=== PATIENT | male | born 1950 | race Hispanic/Latino ===

== ENCOUNTER 2017-08-13 07:10 | Day surgery (SDC) | payer MEDICARE, OTHER ==
[2017-08-06 09:22] VITALS: BMI 25.7
[2017-08-13] MEDS ORDERED: Propofol 10 mg/ml Inj (20 ML) ONE (08:43)
--- NOTE | 2017-08-13 09:04 | CARD ---
APPROVED REPORT EKG Measurement Heart [id number] <Conclusion> Normal sinus rhythm Left axis deviation Right bundle branch block
[2017-08-13] MEDS ORDERED: Sodium Chloride 0.9% 1,000 ML IV SCH (09:30)
[2017-08-13 10:12] VITALS: BP 131/76; PULSE 62; RESP 18; TEMP 97.8; O2SAT 100
== END 2017-08-13 10:40 | disposition home or self-care (01) ==
LOC: ENDO 07:10
PROVIDERS: ATTEND Specialist
DX: D12.0 Benign neoplasm of cecum (principal); K57.30 Diverticulosis of large intestine without perforation or abscess without bleeding; K64.8 Other hemorrhoids; E11.9 Type 2 diabetes mellitus without complications; E78.5 Hyperlipidemia, unspecified; I10 Essential (primary) hypertension; Z86.73 Personal history of transient ischemic attack (TIA), and cerebral infarction without residual deficits; Z88.0 Allergy status to penicillin
CPT/HCPCS: 45380; 82948; 88305; 93005; J2001; J2704; J7040

== ENCOUNTER → 2018-06-29 | Outpatient (CLI) | payer MEDICARE, OTHER | LOC: RAD 11:00 | DX: R55 Syncope and collapse (principal); C85.90 Non-Hodgkin lymphoma, unspecified, unspecified site ==